=== PATIENT | male | born 1945 | race African-American/Black ===

== ENCOUNTER 2021-07-31 16:11 | Emergency (ER) | payer MEDICARE, MEDICAID ==
[~2021-07-31] VITALS: Ht 172.7 cm; Wt 75.0 kg
[2021-07-31 18:45] VITALS: BP 107/69
== END 2021-07-31 18:55 | disposition home or self-care (01) ==
LOC: ER 16:11
DX: F10.129 Alcohol abuse with intoxication, unspecified (principal); F12.10 Cannabis abuse, uncomplicated; Y90.9 Presence of alcohol in blood, level not specified
CPT/HCPCS: 82962; 99283